=== PATIENT | female | born 1950 | race Caucasian/White ===

== ENCOUNTER 2018-02-13 08:51 | Day surgery (SDC) | payer MEDICARE, OTHER ==
[~2018-02-13 08:51] MED LIST: ACETAMINOPHEN 1,000 MG/100 ML BTL IV ONE; CEFAZOLIN 2 Gram 2 GM/50 ML BAG IVPB ONE; FAMOTIDINE 20MG TABLET PO ONE; MECLIZINE 25 MG TABLET PO ONE; METOCLOPRAMIDE 10 MG TABLET PO ONE
[2018-02-13] MEDS ORDERED: FENTANYL PF 100MCG/2ML VIAL IV ONE (08:52)
[2018-02-13] MEDS ORDERED: BUPIVACAINE LIPOSOME/PF 133MG/10ML VIAL IV ONE (08:52)
[2018-02-13] MEDS ORDERED: MIDAZOLAM HCL 2MG/2ML VIAL IV ONE (08:52)
[2018-02-13] MEDS ORDERED: BUPIVACAINE 0.5% (5MG/ML) PF 30ML VIAL IVP ONE (08:52)
[2018-02-13] MEDS ORDERED: DEXAMETHASONE 4 MG/ML 1ML VIAL IVP ONE (08:52)
[2018-02-13] MEDS ORDERED: SEVOFLURANE 250 ML INH ONE (08:52)
[2018-02-13] MEDS ORDERED: PROPOFOL 10 MG/ML VIAL IV ONE (08:52)
[2018-02-13] MEDS ORDERED: LIDOCAINE 2% MDV (20MG/ML) 20ML VIAL IV ONE (08:52)
[2018-02-13] MEDS ORDERED: MORPHINE SULFATE PF 10MG/10ML VIAL IV ONE (08:52)
[2018-02-13] MEDS ORDERED: ONDANSETRON HCL IV 4 MG/2 ML VIAL IVP ONE (08:52)
[2018-02-13] MEDS ORDERED: BUPIVACAINE 0.5% W/EPI MPF 30 ML VIAL IVP ONE (08:52)
[2018-02-13 09:07] LABS: BASO % 0.3 % (0-6); EOS % 0.9 % (0-6); HEMATOCRIT 52.1 % (35.0-47.0); HEMOGLOBIN 17.3 gm/dl (11.6-16.0); LYMPH % 17.9 % (16-45); MEAN CELL VOLUME 90.6 fl (81-97); MEAN CORPUSCULAR HGB CONC 33.2 g/dl (32-36); MEAN PLATELET VOLUME 10.1 fl (7.4-10.4); MONO % 7.9 % (0-9); PLATELET COUNT 291 K/uL (130-400); RED BLOOD COUNT 5.75 M/uL (3.80-5.40); RED CELL DISTRIBUTION WIDTH 13.4 % (11.5-14.5)
[2018-02-13 09:20] LABS: BLOOD UREA NITROGEN 8 mg/dL (8-23); CREATININE 0.7 mg/dL (0.5-0.9); EST GLOMERULAR FILTRATION RATE > 60 mL/min; GLUCOSE,RANDOM 144 mg/dL (74-109)
--- NOTE | 2018-02-14 11:50 | Operative Note ---
DATE OF SURGERY: 02/13/2018 PREOPERATIVE DIAGNOSIS: Tear of the rotator cuff on the right. POSTOPERATIVE DIAGNOSES: 1.Chronically torn right rotator cuff tear. 2. Profound external impingement right shoulder. 3. Complex glenohumeral labral tear with synovitis. 4. Adhesive capsulitis, right shoulder. 5. Advanced arthrosis, right distal clavicle. OPERATION: 1. Open repair of a chronically torn right tricuspid tendon. 2. Right shoulder arthroscopy with intraarticular debridement. 3. Right shoulder open acromioplasty, CA ligament resection, subacromial bursectomy. 4. Right shoulder distal clavicle resection. 5. Right shoulder manipulation under anesthesia. Staff Surgeon: Richard Rodrigez MD Anesthesia: General. Preparation: Chloraprep. Individual Considerations: None. PROCEDURE: The patient was taken to the operating room, placed supine on the operating room table. She had a successful induction with general anesthetic. She was then placed in a semi-seated beach chair position. Her right arm and shoulder were prepped and draped in the usual fashion. Examination under anesthesia showed adhesive capsulitis. At about 90 degrees I felt resistance. I was able to bring her into full abduction and forward flexion. There was obvious lysis of adhesions when I did this. The patient then had a posterior portal identified for arthroscopy. Skin was infiltrated with 0.5% Marcaine with epinephrine prior. An 18-gauge spinal needle was placed in the joint, and the joint was inflated with normal saline. A stab wound was made and a blunt-tipped trocar for the scope was easily placed in the joint. The joint was inflated with normal saline. An anterior accessory portal was then made just inferior to the intact long head of the biceps tendon in retrograde fashion with a Wissinger lynn, and the joint was irrigated out. There was a hematoma within the joint consistent with a manipulation. Fraying of the superior labrum was debrided. An obvious tear of the supraspinatus underneath. Long head was intact. Subscap was intact. Glenohumeral joint was intact. Moderate synovitis was debrided. After irrigation, portals were closed with julia. The patient had an anterior approach to the subacromial space and distal clavicle. Skin was infiltrated with 0.5% Marcaine with epinephrine prior. Sharp dissection carried down through skin and subcutaneous tissues. Small veins were coagulated with a Bovie. An anterior deltoid interval was developed. Care was taken not to split the deltoid more than about 4 cm distal to the anterior tip of the acromion to prevent injury to the axillary nerve. Once in the subacromial space, there was a large blount of fluid consistent with a tear. The deltoid was then taken subperiosteally off the anterior aspect of the acromion, over the top of the intact CA ligament, and off the anterior aspect of a highly degenerated distal clavicle. CA ligament was resected with a Bovie. Distal clavicle was resected taking just under 1 cm with an oscillating saw. An anterior acromioplasty was performed. She had downsloping spurs and spurs at the AC joint. An acromioplasty was performing taking about 7 or 8 mm tapering towards posteromedially to include the spurs at the AC joint. The undersurface was then smoothed with a rasp. A complete thickened bursa was then removed. I now had a good look at the cuff. She had an obvious about 2 cm tear of the supraspinatus tendon. It was hanging on by a thread. This only retracted maybe 5 mm. I was able to freshen it to bleeding tendon and then freshen the area on the tuberosity with a bur. I then placed multiple #1 Ethibond retention sutures into the freshened tendon and then edmond them into the freshened area of the tuberosity with needle holes going distally and when I pulled this down, it pulled the cuff back into the tuberosity. This gave an excellent repair. I put it through a full range of motion to ensure no further impingement. After irrigation, deltoid was reattached to the remaining acromion with multiple interrupted #2 Vicryl going directly through the bony acromion. The periosteal cup of the distal clavicle was closed with running #2 Vicryl. Anterior deltoid interval was closed with running #1 Vicryl. Subcu was closed with 2-0 plus Vicryl and skin was closed with a running 3-0 quill. I did infiltrate the subacromial space with an 18-gauge spinal needle and injected about 15 mL of 0.5% Marcaine along with 10 mg of morphine. The patient tolerated the procedure well. Needle and sponge counts were correct. Estimated blood loss was minimal. She was taken back to recovery in good condition. There were no complications. J[facility] MEDICAL CENTERHeather
== END 2018-02-13 13:40 | disposition home or self-care (01) ==
LOC: SUR 08:51
PROVIDERS: ATTEND Orthopaedic Surgery
DX: S43.431A Superior glenoid labrum lesion of right shoulder, initial encounter (principal); M75.01 Adhesive capsulitis of right shoulder; M75.41 Impingement syndrome of right shoulder; M19.211 Secondary osteoarthritis, right shoulder; I10 Essential (primary) hypertension; E78.00 Pure hypercholesterolemia, unspecified; E11.9 Type 2 diabetes mellitus without complications; J44.9 Chronic obstructive pulmonary disease, unspecified; F17.210 Nicotine dependence, cigarettes, uncomplicated
CPT/HCPCS: 23412; 29822; 23415; 23120; 23700; 01630; 64415; 85025; 80048; 36416; 82948; 76942; J2405; J3010; J0690; C9290